=== PATIENT | male | born 1955 | race African-American/Black ===

== ENCOUNTER 2018-02-15 13:01 | Emergency (ER) | payer OTHER ==
[~2018-02-15] VITALS: Ht 180.3 cm; Wt 68.2 kg
[~2018-02-15 13:01] MED LIST: BACL10TA PO; DICL75 PO
[2018-02-15 13:17] VITALS: BP 143/100; PULSE 95; RESP 16; TEMP 98.2; O2SAT 98
[2018-02-15] MEDS ORDERED: ONDANSETRON ODT 4 MG TAB PO ONE (14:00)
[2018-02-15] MEDS ORDERED: ZOFR4TAB3 SL (14:05)
--- NOTE | 2018-02-15 14:05 | PD ---
HPI Chief Complaint: Medical Clearance Time Seen by Provider: 13:45 Travel History International Travel<30 days: No Contact w/Intl Traveler<30days: No Traveled to known affect area: No History of Present Illness HPI This 63-year-old man who presents to the emergency department complaining of feeling sick with nausea and difficulty eating. He states he is a history of alcoholism but been clean for a number of years. Several months ago after multiple family members that he started drinking again. He stopped drinking about 5 days ago. Since then he felt a little sick, has had chills and clamminess, and he felt like he has not been eating enough. He felt worse and so he came into the emergency department today. Is a little bit tearful and sad. He follow with his primary physician and had blood work done last month which was reassuring. He states he was encouraged that his numbers were still normal. Before he got sicker. No other recent illness or injury. No other complaints. History Past Medical History Narrative Medical Hypertension Alcoholism Social History Alcohol Use: Yes (Stopped drinking last sunday) Tobacco Use: Yes Allergies-Medications (Allergen,Severity, Reaction): Coded Allergies: No Known Allergies (Verified Adverse Reaction, Unknown, 02/15/18) Reported Meds & Prescriptions Reported Meds & Active Scripts Active Zofran Odt (Ondansetron Odt) 4 Mg Tab 4 Mg SL Q8HR PRN Lioresal (Baclofen) 10 Mg Tab 10 Mg PO TID [address] (Diclofenac Sod) 75 Mg Tab 75 Mg PO BID PRN 10 Days Review of Systems Except as stated in HPI: all other systems reviewed are Neg Physical Exam Narrative GENERAL: Well-appearing 60-year-old man, no acute distress. SKIN: Focused skin assessment warm/dry. HEAD: Atraumatic. Normocephalic. EYES: Pupils equal and round. No scleral icterus. No injection or drainage. ENT: No nasal bleeding or discharge. Mucous membranes pink and moist. NECK: Trachea midline. No JVD. CARDIOVASCULAR: Regular rate and rhythm. No murmur appreciated. RESPIRATORY: No accessory muscle use. Clear to auscultation. Breath sounds equal bilaterally. GASTROINTESTINAL: Abdomen is flat and soft. No tenderness. MUSCULOSKELETAL: No obvious deformities. No clubbing. No cyanosis. No edema. NEUROLOGICAL: Awake and alert. No obvious cranial nerve deficits. Motor grossly within normal limits. Normal speech. No tremor. PSYCHIATRIC: Tearful but optimistic. Data Data Last Documented VS Vital Signs Date Time Temp Pulse Resp B/P (MAP) Pulse Ox O2 Delivery O2 Flow Rate FiO2 02/15/18 13:17 98.2 95 16 143/100 (114) 98 Orders Orders Comprehensive Metabolic Panel (02/15/18 13:57) Complete Blood Count With Diff (02/15/18 13:57) Ondansetron Odt (Zofran Odt) (02/15/18 14:00) Sodium Chlorid 0.9% 500 Ml Inj (Ns 500 M (02/15/18 16:00) Labs Laboratory Tests Test 02/15/18 14:15 White Blood Count 14.4 TH/MM3 Red Blood Count 4.55 MIL/MM3 Hemoglobin 13.4 GM/DL Hematocrit 40.2 % Mean Corpuscular Volume 88.2 FL Mean Corpuscular Hemoglobin 29.5 PG Mean Corpuscular Hemoglobin Concent 33.5 % Red Cell Distribution Width 15.9 % Platelet Count 298 TH/MM3 Mean Platelet Volume 8.4 FL Neutrophils (%) (Auto) 94.1 % Lymphocytes (%) (Auto) 2.2 % Monocytes (%) (Auto) 3.4 % Eosinophils (%) (Auto) 0.3 % Basophils (%) (Auto) 0.0 % Neutrophils # (Auto) 13.5 TH/MM3 Lymphocytes # (Auto) 0.3 TH/MM3 Monocytes # (Auto) 0.5 TH/MM3 Eosinophils # (Auto) 0.0 TH/MM3 Basophils # (Auto) 0.0 TH/MM3 CBC Comment DIFF FINAL Differential Comment Blood Urea Nitrogen 17 MG/DL Creatinine 1.49 MG/DL Random Glucose 83 MG/DL Total Protein 7.2 GM/DL Albumin 2.6 GM/DL Calcium Level 8.8 MG/DL Alkaline Phosphatase 170 U/L Aspartate Amino Transf (AST/SGOT) 154 U/L Alanine Aminotransferase (ALT/SGPT) 134 U/L Total Bilirubin 1.7 MG/DL Sodium Level 138 MEQ/L Potassium Level 3.3 MEQ/L Chloride Level 104 MEQ/L Carbon Dioxide Level 21.2 MEQ/L Anion Gap 13 MEQ/L Estimat Glomerular Filtration Rate 58 ML/MIN MDM Medical Decision Making Medical Screen Exam Complete: Yes Emergency Medical Condition: Yes Interpretation(s) LABS: CBC remarkable for leukocytosis. CMP remarkable for elevated liver enzymes. Differential Diagnosis AKA, withdrawal, dehydration, electrolyte abnormalities, other Narrative Course Medical decision making This 63-year-old male presents to the emergency department complaining of nausea weakness after he stopped drinking alcohol about 5 or 6 days ago. Is not in acute withdrawal now. He does look a little bit dehydrated. Will check his electrolytes. Will treat with oral Zofran. I think he can follow-up as an outpatient with some oral Zofran Diagnosis Primary Impression: Dehydration Additional Impression: Vomiting Additional Instructions: Use Zofran here for nausea or vomiting. Continue to avoid alcohol. Follow with her primary doctor 1 week if not feeling completely normal. Return to the emergency department for any new or worsening symptoms. Med/Other Pt SpecificInfo: No Change to Meds Scripts Ondansetron Odt (Zofran Odt) 4 Mg Tab 4 MG SL Q8HR Y for Nausea/Vomiting, #12 TAB 0 Refills Prov: Nikita Han MD 02/15/18 Disposition: 01 DISCHARGE HOME Condition: Stable Nikita Han MD Feb 15, 2018 14:05
[2018-02-15 14:36] LABS: AUTOMATED NEUTROPHIL # 13.5 TH/MM3 (1.8-7.7); EOSINOPHIL % 0.3 % (0.0-4.0); HEMATOCRIT 40.2 % (39.0-51.0); HEMOGLOBIN 13.4 GM/DL (13.0-17.0); LYMPH % 2.2 % (9.0-44.0); LYMPHOCYTE # 0.3 TH/MM3 (1.0-4.8); MEAN CELL VOLUME 88.2 FL (80.0-100.0); MEAN CORPUSCULAR HEMOGLOBIN 29.5 PG (27.0-34.0); MEAN CORPUSCULAR HGB CONC 33.5 % (32.0-36.0); MEAN PLATELET VOLUME 8.4 FL (7.0-11.0); MONO % 3.4 % (0.0-8.0); MONOCYTE # 0.5 TH/MM3 (0-0.9); NEUT % 94.1 % (16.0-70.0); PLATELET COUNT 298 TH/MM3 (150-450); RED BLOOD COUNT 4.55 MIL/MM3 (4.50-5.90); RED CELL DISTRIBUTION WIDTH 15.9 % (11.6-17.2); WHITE BLOOD COUNT 14.4 TH/MM3 (4.0-11.0)
[2018-02-15 15:12] LABS: ALKALINE PHOSPHATASE 170 U/L (45-117); ALT (GPT) 134 U/L (12-78); TOTAL BILIRUBIN ADULT 1.7 MG/DL (0.2-1.0); TOTAL PROTEIN 7.2 GM/DL (6.4-8.2)
[2018-02-15] MEDS ORDERED: SODIUM CHLORID 0.9% 500 ML INJ 500 ML IV ONE (16:00)
[2018-02-15 16:04] LABS: ALBUMIN 2.6 GM/DL (3.4-5.0); AST (GOT) 154 U/L (15-37); BICARBONATE 21.2 MEQ/L (21.0-32.0); BLOOD UREA NITROGEN 17 MG/DL (7-18); CALCIUM 8.8 MG/DL (8.5-10.1); CHLORIDE 104 MEQ/L (98-107); CREATININE 1.49 MG/DL (0.60-1.30); GLOMERULAR FILTRATION RATE 58 ML/MIN (>89); GLUCOSE,RANDOM 83 MG/DL (74-106); SODIUM (NA) 138 MEQ/L (136-145)
[2018-02-15 17:18] VITALS: BP 163/65
== END 2018-02-15 17:29 | disposition home or self-care (01) ==
LOC: NEPD 13:01
DX: E86.0 Dehydration (principal); R11.2 Nausea with vomiting, unspecified; Z72.0 Tobacco use
CPT/HCPCS: 80053; 85025; 96360; 99284; J7040

== ENCOUNTER 2018-02-18 10:14 | Emergency (ER) | payer OTHER ==
[~2018-02-18] VITALS: Ht 180.3 cm; Wt 70.0 kg
[~2018-02-18 10:14] MED LIST changes: +ZOFR4TAB3 SL
[2018-02-18 10:15] VITALS: BP 147/89; PULSE 100; RESP 16; TEMP 98.3; O2SAT 95
--- NOTE | 2018-02-18 11:41 | PD ---
HPI Chief Complaint: Medication Refill Request Time Seen by Provider: 11:19 Travel History International Travel<30 days: No Contact w/Intl Traveler<30days: No Traveled to known affect area: No History of Present Illness HPI 63-year-old male presents to the emergency room for evaluation of constipation. Patient states he has not had a bowel movement in 8 days. States he was drinking alcohol after his sister 6 days ago but quit drinking about 2 weeks ago. He came to the emergency room a few days after quitting for nausea, vomiting. He was seen in had unremarkable workup. Discharge with Zofran for nausea. States Zofran has significantly improved his nausea. He denies any abdominal pain. Reports continued decreased appetite. He has been able to eat but feels blocked up. He has been eating bananas and rice excessively as instructed to help with the nausea. States he has been trying to have a bowel movement without success. He has not tried anything over-the- counter for constipation. PFSH Past Medical History Cardiovascular Problems: Yes (HTN) Gastrointestinal Disorders: No Reproductive: No Respiratory: Yes (PNEUMONIA) Social History Alcohol Use: Yes (Stopped drinking last sunday) Tobacco Use: Yes Substance Use: No Allergies-Medications (Allergen,Severity, Reaction): Coded Allergies: No Known Allergies (Verified Adverse Reaction, Unknown, 02/15/18) Reported Meds & Prescriptions Reported Meds & Active Scripts Active Zofran Odt (Ondansetron Odt) 4 Mg Tab 4 Mg SL Q8HR PRN Lioresal (Baclofen) 10 Mg Tab 10 Mg PO TID [address] (Diclofenac Sod) 75 Mg Tab 75 Mg PO BID PRN 10 Days Review of Systems Except as stated in HPI: all other systems reviewed are Neg Physical Exam Narrative GENERAL: Well-nourished, well-developed male in no acute distress. Afebrile. Ambulatory. SKIN: Focused skin assessment warm/dry. HEAD: Normocephalic. EYES: No scleral icterus. No injection or drainage. NECK: Supple, trachea midline. No JVD or lymphadenopathy. CARDIOVASCULAR: Regular rate and rhythm without murmurs, gallops, or rubs. RESPIRATORY: Breath sounds equal bilaterally. No accessory muscle use. GASTROINTESTINAL: Abdomen soft, non-tender, nondistended. Data Data Last Documented VS Vital Signs Date Time Temp Pulse Resp B/P (MAP) Pulse Ox O2 Delivery O2 Flow Rate FiO2 02/18/18 10:15 98.3 100 16 147/89 (108) 95 MDM Medical Decision Making Medical Screen Exam Complete: Yes Emergency Medical Condition: Yes Medical Record Reviewed: Yes Differential Diagnosis Constipation, nausea, vomiting, alcohol detoxification, withdrawal, pancreatitis Narrative Course 63-year-old male presents to the emergency room for evaluation of constipation for the past 8 days. Patient came to the ED 3 days ago for nausea and vomiting after stopping drinking. He was given Zofran. States nausea and vomiting have essentially resolved but now he has decreased appetite because he has not been able to have a bowel movement in 8 days. He denies any abdominal pain. Physical exam is reassuring. Vital signs stable. Complete abdomen soft, nontender. No rebound tenderness or guarding. Patient moving easily on the bed. Patient will be discharged with prescription for stool softeners and told to stop eating bananas. Told to continue staying hydrated with Gatorade as he has been and refrain from drinking. He understands and agrees to plan. Diagnosis Primary Impression: Constipation Qualified Codes: K59.00 - Constipation, unspecified Referrals: Primary Care Physician Additional Instructions: Rest and drink plenty of fluids. Take stool softeners as directed. Drink warm prune juice. Temporarily stop eating bananas, rice, toast. Follow-up with a primary care physician. Return to the emergency room for worsening symptoms. Disposition: 01 DISCHARGE HOME Condition: Stable Teresa Ball Feb 18, 2018 11:41
[2018-02-18] MEDS ORDERED: GENT5TAB PO (11:43)
== END 2018-02-18 12:10 | disposition home or self-care (01) ==
LOC: NEPK 10:14
DX: K59.00 Constipation, unspecified (principal); I10 Essential (primary) hypertension; Z72.0 Tobacco use
CPT/HCPCS: 99283